=== PATIENT | female | born 1965 | race Caucasian/White ===

== ENCOUNTER → 2017-04-02 | Day surgery (SDC) | payer OTHER ==
[2017-03-27 11:16] VITALS: Ht 165.1 cm; Wt 70.5 kg
[~2017-04-02] VITALS: Ht 165.1 cm; Wt 70.5 kg
[~2017-04-02] MED LIST: DEXAMETHASONE SOD INJ 4 MG/ML VIAL ONE; FEXO1TAB49 PO; IBUP-1050 PO; LIDOCAINE HCL 1% MPF 5 ML VIAL ONE
--- NOTE | 2017-04-02 07:04 | History & Physical Bridge - [place] ---
H&P Re-Evaluation Bridge Note: I have examined the patient, reviewed the History & Physical and in the interval since the performance of the History & Physical I have noted the following changes of clinical significance: No changes noted
--- NOTE | 2017-04-02 07:33 | Discharge Instructions-SurgCtr ---
Discharge Instructions Date of Service Apr 02, 2017. Visit Reason for Visit: Lumbosacral Spondylosis Without Myelopathy Discharge Discharge Diagnosis / Problem: same Discharge Goals Goal(s): Decrease discomfort Activity Recommendations Activity Limitations: resume your previous activity Anesthesia . Post Anesthesia Instructions: If you have had General Anesthesia or IV Sedation: * Do not drive today. * Resume driving when surgeon permits. * Do not make important decisions or sign legal documents today. * Call surgeon for: 1. Temperature elevations greater than 101 degrees F. 2. Uncontrollable pain. 3. Excessive bleeding. 4. Persistent nausea and vomiting. 5. Medication intolerance (nausea, vomiting or rash). * For nausea and vomiting use only clear liquids such as: tea, soda, bouillon until nausea subsides, then gradually increase diet as tolerated. * If you have any concerns or questions, call your surgeon's office. If physician is unavailable and it is an emergency, call 911 or go to the nearest emergency room. . Diet Recommendations Home Diet: no limitations Procedures Procedures Performed: EPIDURAL STEROID INJECTION L4-L5 Pending Studies Studies pending at discharge: no Medical Emergencies . Who to Call and When: Medical Emergencies: If at any time you feel your situation is an emergency, please call 911 immediately. . Non-Emergent Contact Non-Emergency issues call your: Surgeon . . "Provider Documentation" section prepared by Urbano Pink. .
[2017-04-02 07:34] VITALS: TEMP 36.6
--- NOTE | 2017-04-02 07:34 | [facility] Post Operative Brief Note ---
Immediate Operative Summary Operative Date Apr 02, 2017. Pre-Operative Diagnosis SPONDYLOSIS Post-Operative Diagnosis SAME Procedure(s) Performed EPIDURAL STEROID INJECTION L4-L5 Surgeon DR MACK THORNE Nylon Hot Wire Cutter Surgeon(s) NONE Estimated Blood Loss 0 Findings arthritis Specimens 0 Complication(s) None Disposition Recovery Room / PACU
--- NOTE | 2017-04-02 07:45 | OPERATIVE REPORT ---
DATE OF OPERATION: 04/02/2017 PREOPERATIVE DIAGNOSIS: Stenosis and arthritis of the spine. POSTOPERATIVE DIAGNOSIS: Same. PROCEDURE: Include epidural steroid injection 4-5 lumbar. DESCRIPTION OF PROCEDURE: The patient was taken to the minor procedure room and placed prone, prepped and draped sterile. Spinal needle advanced to the epidural space at L4-5 lumbar. Then, 2 mL of dexamethasone injected without incident. The patient tolerated it well. Returned to recovery room satisfactory stable. I attest to the content of the Intraoperative Record and any orders documented therein. Any exception s are noted below.
[2017-04-02 07:54] VITALS: BP 142/97; PULSE 76; O2SAT 95
== END | disposition home or self-care (01) ==
LOC: X.SURG 06:20
PROVIDERS: ATTEND Orthopaedic Surgery Orthopaedic Surgery of the Spine
DX: M43.17 Spondylolisthesis, lumbosacral region (principal); Z90.49 Acquired absence of other specified parts of digestive tract

== ENCOUNTER → 2017-05-10 | Outpatient (CLI) | payer OTHER ==
[2017-05-10 16:35] LABS: BASO % 0.4 %; BASO ABS # 0.03 K/uL (0-0.2); COMPLETE YES; EOS % 2.7 %; EOS ABS # 0.19 K/uL (0-0.5); HEMATOCRIT 45.3 % (37-47); HEMOGLOBIN 15.2 g/dL (12.0-16.0); IG# 0.02 K/uL (0.00-0.02); IG% 0.3 %; LYMPH % 33.4 %; LYMPH ABS # 2.34 K/uL (1.2-3.4); MEAN CELL VOLUME 89.3 fL (80-100); MEAN CORPUSCULAR HGB CONC 33.6 g/dl (32-36); MEAN PLATELET VOLUME 9.2 fL (7.4-10.4); MONO ABS # 0.84 K/uL (0.11-0.59); NEUT % 51.2 %; NEUT ABS # 3.58 K/uL (1.4-6.5); PLATELET COUNT 290 K/uL (130-400); RED BLOOD COUNT 5.07 M/uL (4.2-5.4); RED CELL DISTRIBUTION WIDTH CV 12.4 % (11.5-14.5)
[2017-05-10 16:43] LABS: PTT PATIENT 25.1 SECONDS (21.0-31.0)
[2017-05-10 16:43] LABS: PROTHROMBIN TIME (PATIENT) 10.3 SECONDS (9.0-12.0)
[2017-05-10 16:50] LABS: URINE APPEARANCE CLEAR (CLEAR); URINE BILIRUBIN NEG (NEG); URINE BLOOD HGB NEG (NEG); URINE COLOR DK YELLOW; URINE GLUCOSE(DIPSTICK) NEG (NEG); URINE KETONES TRACE (NEG); URINE LEUKOCYTE ESTERASE NEG (NEG); URINE NITRITE NEG (NEG); URINE PH 5.5 (4.5-7.5); URINE PROTEIN(DIPSTICK) NEG (NEG); UROBILINOGEN NEG (NEG)
[2017-05-10 17:09] LABS: GLUCOSE 86 mg/dl (70-99)
[2017-05-10 17:09] LABS: BLOOD UREA NITROGEN 17 mg/dl (7-18); CALCIUM 9.4 mg/dl (8.5-10.1); CARBON DIOXIDE 30 mmol/L (21-32); CHLORIDE 105 mmol/L (98-107); CREATININE 0.76 mg/dl (0.60-1.20); EstGFR CKD-E AfrAm 103.8; EstGFR CKD-E NON AfrAm 89.6; POTASSIUM 3.5 mmol/L (3.5-5.1); SODIUM 140 mmol/L (136-145)
[2017-05-10 17:16] LABS: MANUAL MICROSCOPIC REQUIRED? NO; REVIEW REQ? NO
== END | disposition home or self-care (01) ==
LOC: C.RAD 15:57
DX: Z01.818 Encounter for other preprocedural examination (principal)

== ENCOUNTER 2017-05-23 06:23 | Inpatient (IN) | payer OTHER ==
[2017-05-16 13:30] VITALS: Ht 165.1 cm; Wt 72.7 kg
--- NOTE | 2017-05-22 21:28 | HISTORY & PHYSICAL EXAMINATION ---
DATE OF ADMISSION: 05/23/2017 CHIEF COMPLAINT: Back, buttock and lower extremity difficulty walking intolerance. HISTORY OF PRESENT ILLNESS: Thi is delightful, she has severe spinal stenosis of her spine. She has lower extremity difficulty, paresthesias, numbness and tingling. She has requested surgical intervention failing conservative management. PAST MEDICAL HISTORY: Positive for spine problems, neck problems, acid reflux, kidney stones. No carcinoma. No hypertension, diabetes but numbness and tingling. PAST SURGICAL HISTORY: Hysterectomy, cholecystectomy, kidney stones, carpal tunnel. ALLERGIES: POLLEN. MEDICATIONS: Allergy medication and Tylenol for pain. REVIEW OF SYSTEMS: Denies blurred vision, double vision, tinnitus or vertigo. Denies chest pain, palpitations, shortness of breath. No nausea, vomiting, urgency, frequency, dysuria. She has back, buttock and lower extremity musculoskeletal issues. PHYSICAL EXAMINATION: VITAL SIGNS: Blood pressure 130/80, pulse of 80, respiratory rate 16, temperature 97.4. HEENT: Pupils react to light and accommodation. Ear, nose and throat clear. CARDIAC: Normal S1, S2, no S3. LUNGS: Clear to auscultation. No rales, rhonchi or wheezing. ABDOMEN: Soft, nontender. Bowel sounds present in all quadrants. NEUROLOGIC: Decreased knee jerk reflexes, Achilles reflex, slight weakness of dorsiflexion. Gait intolerance. Pain with percussion, loss of range of motion. IMAGES: Demonstrated stenosis of the spine, particularly L4-L5 with slight instability. PLAN: Includes posterior lumbar interbody fusion L4-L5, possible Globus transition.
[~2017-05-23] VITALS: Ht 165.1 cm; Wt 72.7 kg
[2017-05-23] VITALS (7 sets, daily range): BP systolic 100–139; BP diastolic 60–83; PULSE 75–91; TEMP 36.2–36.8; O2SAT 92–97
[~2017-05-23 06:23] MED LIST changes: +CEFAZOLIN 2000MG IV PUSH 10 ML IV SCH; +FENTANYL CITRATE INJ 50 MCG/1 ML 2 ML VIAL ONE; +GLYCOPYRROLATE INJ 0.2 MG/ML VIAL ONE; +LACTATED RINGER'S 1000ML 1,000 ML IV SCH; -LIDOCAINE HCL 1% MPF 5 ML VIAL ONE; +LIDOCAINE HCL 2% 2 ML VIAL (20MG/ML) ONE; +MIDAZOLAM HCL 1 MG/ML 2ML VIAL ONE; +NEOSTIGMINE METHYLSULFATE 1 MG/ML 10ML VIAL ONE; +ONDANSETRON INJ 2 MG/ML 2 ML VIAL ONE; +PROPOFOL IV EMULSION 10 MG/ML 20 ML VIAL IV ONE; +SODIUM CHLORIDE 0.9% 1000ML 1,000 ML IV SCH
[2017-05-23] MEDS ORDERED: GELATIN SPONGE SZ 100 ONE (07:54)
[2017-05-23] MEDS ORDERED: THROMBIN FOR SOLN 20000 UNIT KIT ONE ×2 (07:54→07:55)
[2017-05-23] MEDS ORDERED: VANCOMYCIN HCL 1000MG/20ML VIAL ONE ×2 (07:54→08:07)
[2017-05-23] MEDS ORDERED: BACITRACIN 50000 UNIT VIAL ONE (07:55)
[2017-05-23] MEDS ORDERED: BUPIVACAINE/EPINEPHRINE 0.5% MPF 1:200,000 30 ML VIAL ONE (07:57)
[2017-05-23] MEDS ORDERED: HYDROmorphone INJ 2 MG/ML SYR/VIAL ONE (08:35)
[2017-05-23] MEDS ORDERED: EpHEDrine SULFATE 50MG/5ML SYR ONE (08:45)
[2017-05-23] MEDS ORDERED: ATROPINE SULFATE 0.1 MG/ML 5ML SYR IV PRN (09:15)
[2017-05-23] MEDS ORDERED: FLUMAZENIL 0.1 MG/1 ML 10 ML VIAL IV PRN (09:15)
[2017-05-23] MEDS ORDERED: NALOXONE HCL 0.4 MG/1 ML VIAL/CARP IV PRN ×2 (09:15→11:00)
[2017-05-23] MEDS ORDERED: LABETALOL HCL IV 5 MG/ML 20ML IV PRN (09:15)
[2017-05-23] MEDS ORDERED: ONDANSETRON INJ 2 MG/ML 2 ML VIAL IV PRN ×2 (09:15→11:00)
[2017-05-23] MEDS ORDERED: EpHEDrine SULFATE INJ 50 MG/ML AMP IV PRN (09:15)
[2017-05-23] MEDS ORDERED: PROMETHAZINE HCL INJ 12.5 MG in SODIUM CHLORIDE 0.9% 50ML 50 ML IV PRN ×2 (09:15→11:00)
[2017-05-23] MEDS ORDERED: ONDANSETRON INJ 2 MG/ML 2 ML VIAL ONE (09:33)
[2017-05-23] MEDS ORDERED: GLYCOPYRROLATE INJ 0.2 MG/ML VIAL ONE (09:38)
[2017-05-23] MEDS ORDERED: CISATRACURIUM BESYLATE IV SOLN 2 MG/ML 10 ML VIAL ONE (10:19)
[2017-05-23] MEDS ORDERED: SUCCINYLCHOLINE CHLORIDE 20 MG/ML 10 ML VIAL IV ONE (10:19)
--- NOTE | 2017-05-23 10:36 | DIAGNOSTIC IMAGING REPORT ---
SPINE ONE VIEW, ANY LEVEL CLINICAL HISTORY: 51 years-old Female presenting with L4-L5 FUSION. TECHNIQUE: 1 fluoroscopic spot image(s) obtained as part of an intraoperative procedure. COMPARISON: 04/02/2017. FINDINGS/IMPRESSION: Interval bilateral transpedicular screw fixation of L4-5 with interbody spacer placement. Laminectomy defects may also be present. Grossly normal anatomic alignment. Please see surgical report for further details. Fluoroscopy dosage (mGy): 5.9. Fluoroscopy time: 8.9 seconds. Number of fluoroscopic spot images: 1. Electronically signed by: Petr Butts M.D. 05/23/2017 10:35 AM Dictated Date/Time: 05/23/2017 10:34 AM
[2017-05-23] MEDS ORDERED: METOPROLOL TARTRATE 1 MG/ML VIAL ONE (10:49)
[2017-05-23] MEDS ORDERED: HYDROmorphone INJ 1 MG/ML SYR IV PRN (11:00)
[2017-05-23] MEDS ORDERED: CEFAZOLIN IV 1,000 MG in DEXTROSE 5% 50ML 50 ML IV SCH (11:00)
[2017-05-23] MEDS ORDERED: ACETAMINOPHEN 325 MG TAB PO PRN (11:00)
[2017-05-23] MEDS ORDERED: METOCLOPRAMIDE HCL INJ 5 MG/ML 2 ML VIAL IV PRN (11:00)
[2017-05-23] MEDS ORDERED: LORAZEPAM INJ 1 MG in SYRINGE 0.5 ML IV PRN (11:00)
[2017-05-23] MEDS ORDERED: LORAZEPAM 1 MG TAB PO PRN (11:00)
[2017-05-23] MEDS ORDERED: FEXOFENADINE HCL 180 MG TAB PO PRN (11:00)
[2017-05-23] MEDS ORDERED: SODIUM CHLORIDE 0.9% 1000ML 1,000 ML IV SCH (11:00)
[2017-05-23] MEDS ORDERED: HYDROmorphone INJ 2 MG/ML SYR/VIAL IV PRN (11:00)
[2017-05-23] MEDS ORDERED: MAGNESIUM HYDROXIDE SUSP 30 ML UDC PO PRN (11:00)
--- NOTE | 2017-05-23 11:04 | [facility] Post Operative Brief Note ---
Immediate Operative Summary Operative Date May 23, 2017. Pre-Operative Diagnosis Severe Spinal Stenosis L4-L5 Post-Operative Diagnosis Severe Spinal Stenosis L4-L5 Procedure(s) Performed L4-L5 Posterior Lumbar Interbody Fusion Surgeon Dr. Pink Net Developer With [facility] Surgeon(s) Jeramy Garcia PA-C Estimated Blood Loss 200 mL Findings Consistent with Post-Op Diagnosis Specimens None per surgeon Drains one hemovac Anesthesia Type General Complication(s) none
[2017-05-23] MEDS ORDERED: HYDROmorphone HCL 0.5MG/ML 50 ML CASSETTE ONE (11:14)
[2017-05-23] MEDS: HYDROmorphone INJ 1 MG/ML SYR IV PRN ×3 (11:30→11:40)
[2017-05-23 11:33] LABS: HEMATOCRIT 42.1 % (37-47); HEMOGLOBIN 13.9 g/dL (12.0-16.0)
--- NOTE | 2017-05-23 11:59 | Anesthesiology Progress Note ---
Anesthesia Post Op Note Date & Time May 23, 2017 at 11:59 Vital Signs Pain Intensity: 5 Vital Signs Past 12 Hours Date Time Temp Pulse Resp B/P (MAP) Pulse Ox O2 Delivery O2 Flow Rate FiO2 05/23/17 11:50 90 16 107/57 96 Nasal Cannula 4 05/23/17 11:40 83 16 122/71 97 Nasal Cannula 4 05/23/17 11:30 95 16 109/77 97 Oxymask 10 05/23/17 11:20 92 16 118/68 97 Oxymask 10 05/23/17 11:11 36.4 98 16 141/68 97 Oxymask 10 05/23/17 06:58 36.5 80 18 139/83 96 Room Air Notes Mental Status: alert / awake / arousable, participated in evaluation Pt Amnestic to Procedure: Yes Nausea / Vomiting: adequately controlled Pain: adequately controlled Airway Patency, RR, SpO2: stable & adequate BP & HR: stable & adequate Hydration State: stable & adequate Anesthetic Complications: no major complications apparent
--- NOTE | 2017-05-23 12:16 | OPERATIVE REPORT ---
DATE OF OPERATION: 05/23/2017 PREOPERATIVE DIAGNOSIS: Instability arthritis and stenosis lumbar spine, L4-L5. POSTOPERATIVE DIAGNOSIS: Same. PROCEDURE: Include lumbar spine posterior lumbar interbody fusion - L4-L5, posterolateral fusion and complete discectomy only L4-L5. SURGEON: Dr. Pink. WELL TESTING OPERATOR: Jeramy Garcia PA-C. ESTIMATED BLOOD LOSS: 200. COMPLICATIONS: Zero. IMPLANTS USED: [employer]. COUNTS: Sponge and needle counts correct at the close. DESCRIPTION OF PROCEDURE: The patient was taken to the operating room and general intubated, anesthetic provided to the patient, placed prone; scrubbed, prepped, draped sterile. We made a skin incision, fascial incision, put any deep self-retaining retractor stripping out past the facet joints. We did a formal decompression of the lamina of L4. It was obvious that the facet joints were completely incompetent and quite hypertrophied, there was no cartilage on the underside. We debrided this completely and did a laminectomy completely. We were able to also do a good foraminotomy of the L4 and L5 nerve roots bilaterally. We safely got pedicle screws in to the 4 and 5th vertebrae with the [employer], measuring approximately 40 mm in length and 6.5 mm in diameter. We then retracted the dura in a medial direction bilaterally to do a complete discectomy, put interbody cages into the vacated discectomy sites, measuring 22 mm in length, 12 mm in height and 10 mm across. These were all packed with autograft. Irrigated thoroughly, debrided and closed in a layered fashion. Sterile dressings applied. The patient returned to PACU stable. No complications. I attest to the content of the Intraoperative Record and any orders documented therein. Any exception s are noted below.
[2017-05-23] MEDS: SODIUM CHLORIDE 0.9% 1000ML 1,000 ML IV SCH (13:59)
[2017-05-23] MEDS: ACETAMINOPHEN IV 1,000 MG in EMPTY BAG 0 ML IV SCH ×2 (14:00→21:46)
[2017-05-23] MEDS: DEXAMETHASONE INJ 10 MG in SYRINGE 0 ML IV SCH ×2 (14:00→21:46)
[2017-05-23] MEDS: CEFAZOLIN IV 1,000 MG in SYRINGE 2.5 ML IV SCH ×2 (14:00→21:46)
[2017-05-23] MEDS: KETOROLAC TROMETHAMINE 30 MG/ML VIAL IV SCH ×2 (14:01→20:26)
[2017-05-23] MEDS: HYDROmorphone HCL 0.5MG/ML 50 ML CASSETTE IV PRN ×2 (14:57→22:55)
[2017-05-23] MEDS ORDERED: INFLUENZA VIRUS QUAD VACCINE 0.5 ML SYR IM. ONE (15:30)
[2017-05-23] MEDS ORDERED: INFLUENZA ADMINISTRATION CHARGE ONE (15:30)
[2017-05-24] MEDS: KETOROLAC TROMETHAMINE 30 MG/ML VIAL IV SCH ×3 (02:22→14:01)
[2017-05-24] MEDS: SODIUM CHLORIDE 0.9% 1000ML 1,000 ML IV SCH (02:22)
[2017-05-24 03:50] VITALS: BP 99/64; PULSE 77; TEMP 36.4; O2SAT 96
[2017-05-24] MEDS ORDERED: DC PCA ONE (06:00)
[2017-05-24] MEDS ORDERED: BISACODYL 5 MG TABEC PO PRN (06:00)
[2017-05-24] MEDS ORDERED: BISACODYL 10 MG SUPP PR PRN (06:00)
[2017-05-24] MEDS ORDERED: NURSING DECISION MEDICATION ORDER SCH ×2 (06:00→07:15)
[2017-05-24] MEDS: DEXAMETHASONE INJ 10 MG in SYRINGE 0 ML IV SCH ×3 (06:18→22:04)
[2017-05-24] MEDS: ACETAMINOPHEN IV 1,000 MG in EMPTY BAG 0 ML IV SCH ×3 (06:18→22:04)
[2017-05-24] MEDS: CEFAZOLIN IV 1,000 MG in SYRINGE 2.5 ML IV SCH (06:31)
[2017-05-24] MEDS ORDERED: COUGH DROP (SUGAR FREE) LOZ 24 LOZ/1 BOX LOZ PRN (07:00)
[2017-05-24] MEDS ORDERED: HYDR-4383 PO (07:47)
--- NOTE | 2017-05-24 07:48 | Discharge Instructions ---
Discharge Instructions Date of Service May 24, 2017. Admission Reason for Admission: Spinal Stenosis, Spondylolisthesis Discharge Discharge Diagnosis / Problem: same Discharge Goals Goal(s): Decrease discomfort, Improve function Activity Recommendations Activity Limitations: as noted below Lifting Limitations: no more than 5 pounds, until after follow-up appointment Exercise/Sports Limitations: until after follow-up appointment May Resume Sexual Activity: after follow-up appointment Shower/Bathe: keep incision dry . Instructions / Follow-Up Instructions / Follow-Up MEDICATIONS: Please take your prescriptions as instructed at your pre-op appointment. SPECIAL CARE: The following information is intended to answer some of the common questions and concerns regarding your surgery. Each patient is an individual and receives individual counselling throughout the course of treatment, from diagnosis to surgery all the way through recovery. What follows is not an exhaustive list, but should be a useful guide to some of the common questions and concerns patients have regarding their surgeries. These are not provided to keep you from calling us; rather, they give you something accurate and concrete to reference as you recover from your procedure. If you need us, we are available to you. As always, if you are not sure about something, call us at [phone]. MEDICAL EMERGENCIES: For these conditions, call 911 or go to your local hospital-based Emergency Department - not [facility] or equivalent. * Paralysis * Severe chest pain or difficulty breathing * Swelling or redness of either leg Spine procedures can be rather complex and though complications are rare, they do occur. In such cases, effective advice regarding emergency situations cannot always be addressed over the telephone. You may be referred to the emergency department for more effective management of your problem. Activity Limitations: It is important to give your body time to heal, so please limit your activities : * In general, don't do anything that moves your spine too much. You should avoid contact sports, twisting or heavy lifting while you recover. * 5-10 pounds is all you should attempt to lift. * You should not plan on driving for approximately 3 weeks and you should avoid traveling more than 30-45 minutes at a time. Longer trips should be broken down with walking breaks spaced appropriately. * Physical therapy is not usually required. * Walking and good posture practices will help you recover and regain your function. * Avoid straining or sudden changes in position. * In general, the goal is to take it easy and recover. Don't cause any new problems. Just relax. Showers: * Do not take a bath, use a Jacuzzi or hot tub or otherwise submerge your incision. * It is usually safe to take a shower 4-5 days after your surgery. * Your incision does not require any special creams or ointments. * Simply clean it with soap and water, dry and re-dress with a clean bandage afterwards. Incision: * Keep incision clean, dry and protected until your first follow-up appointment. * Some amount of drainage and redness is normal. Any drainage should be fairly clear and not have a foul odor. * If you feel anything is wrong or you have excessive drainage, please call us. * Your stitches and bridget will be removed 10-14 days after your surgery. At the time of your first post-op visit. * Neck surgeries are typically closed with a suture underneath the skin. The steri-strips over the incision should be maintained until we see you in the office. Bracing: * You may be provided with a back or neck brace to encourage good posture and prevent injury. It will remind you not to do too much as you heal and will alert others to the fact that you have had a surgery. * Back braces may be removed for showers and when you are resting at home. They must be worn when you are walking around for any period of time or for travel. * For neck surgery, you will likely be provided with two cervical collars. The soft collar ([place] or foam rubber) is worn most commonly throughout the day and while sleeping. The plastic collar (provided at the hospital) is for showering/bathing. * Except while eating, collars should remain in place. More specifically, bracing is provided for a purpose and should be worn. * Please obtain your brace or collars prior to your operation and bring them to the hospital with you on the day of surgery. * You should also bring your collars to your post-op appointment with Dr. Pink. You should always take good care of your body and practice healthy habits, especially following surgery. You should: * Follow your doctor's treatment plan * Sit and stand properly with good posture (ears over shoulders, shoulders over hips) Don't slouch * Learn to lift correctly * Exercise regularly (low-impact aerobic exercise is especially good, but check with your doctor first) * Generally, be up and walking for 5-10 minutes at a time at least 3-4 times per day from the day you get home * Increasing walking to tolerance until you can walk for 20-30 minutes at a time * Attain and maintain a healthy body weight * Eat healthy foods ( a well-balanced, low-fat diet rich in fruits and vegetables) and get enough calcium * Avoid excessive use of alcohol When to call our office - If you notice any of the following: * Increased pain not relieve by pain medicine * Fevers greater then 100 degrees F, chills or flu symptoms * Increased redness around incision * Drainage from the incision that is not clear * Any foul smelling drainage * Swelling or fluid collection beneath the skin Miscellaneous: * In the hospital, you may be given a walker or cane for support while walking. These are temporary needs and are intended to prevent injuries due to falls. You may discontinue them when you feel strong and steady enough on your feet. * Sleep in a comfortable position. We find that many patients find a lounge chair or recliner with several pillows to be beneficial in the early post-operative period. * The support stockings should be used for 7-10 days and may be discontinued when you are back to walking more and conducting usual household activities. No problem is insignificant. We are here to help you and get you well. Contact us at [phone]. Definitions: Foraminotomy: If part of the disc or a bone spur (osteophyte) is pressing on a nerve as it leaves the vertebra (through an exit called the foramen), a foraminotomy may be done. Otomy means "to make an opening." A foraminotomy is making the opening of the foramen larger, so the nerve can exit without being compressed. Laminotomy: Similar to the foraminotomy, a laminotomy makes a larger opening, this time in your bony plate protecting your spinal canal and spinal cord (the lamina). The lamina may be pressing on your nerve, so the surgeon may make more room for the nerves using a laminotomy. Laminectomy: Sometimes, a laminotomy is not sufficient. The surgeon may need to remove all or part of the lamina. This procedure is called a laminectomy. This can often be done at many levels without any harmful effects. Current Hospital Diet Patient's current hospital diet: Regular Diet Discharge Diet Recommended Diet: Regular Diet Procedures Procedures Performed: L4-L5 Posterior Lumbar Interbody Fusion Pending Studies Studies pending at discharge: no Medical Emergencies . Who to Call and When: Medical Emergencies: If at any time you feel your situation is an emergency, please call 911 immediately. . Non-Emergent Contact Non-Emergency issues call your: Primary Care Provider . "Provider Documentation" section prepared by Urbano Pink. . VTE Core Measure Inpt VTE Proph given/why not?: Treatment not indicated
--- NOTE | 2017-05-24 07:49 | Anesthesiology Progress Note ---
Anesthesia Post Op Note Date & Time May 24, 2017 at 07:48 Vital Signs Pain Intensity: 3.0 Vital Signs Past 12 Hours Date Time Temp Pulse Resp B/P (MAP) Pulse Ox O2 Delivery O2 Flow Rate FiO2 05/24/17 07:35 Room Air 05/24/17 03:50 36.4 77 16 99/64 (76) 96 Nasal Cannula 4.0 05/24/17 00:10 Room Air 05/23/17 23:23 36.8 75 16 106/64 (78) 96 Room Air 4.0 Notes Mental Status: alert / awake / arousable, participated in evaluation Pt Amnestic to Procedure: Yes Nausea / Vomiting: adequately controlled Pain: adequately controlled Airway Patency, RR, SpO2: stable & adequate BP & HR: stable & adequate Hydration State: stable & adequate Anesthetic Complications: no major complications apparent
[2017-05-24 07:57] VITALS: BP 122/68; PULSE 73; TEMP 36.3; O2SAT 97
--- NOTE | 2017-05-24 08:05 | ORTHOPEDICS PROGRESS NOTE ---
DATE: 05/24/2017 SUBJECTIVE: Alert, oriented, no chest pain, shortness of breath, no calf tenderness, some swelling. OBJECTIVE: Vital signs stable, afebrile. Moves all extremities. ASSESSMENT: Status post lumbar spine reconstructive surgery. Doing well in the short run. DISPOSITION: Includes instructions, and education, up ambulatory, very short walks. Tentative discharge home tomorrow the 25 of May.
[2017-05-24] MEDS ORDERED: NURSING VERBAL MED ORDER ONE (08:15)
[2017-05-24] MEDS: POLYETHYLENE (MIRALAX) 17 GM PACK PO SCH (08:40)
[2017-05-24] MEDS: HYDROmorphone HCL 2 MG TAB PO PRN ×4 (09:16→23:35)
[2017-05-24 10:07] VITALS: O2SAT 97
[2017-05-24 11:57] VITALS: BP 118/70; PULSE 67; TEMP 36.6; O2SAT 94
[2017-05-24 15:23] VITALS: BP 100/59; PULSE 75; TEMP 36.7; O2SAT 91
[2017-05-24 23:18] VITALS: BP 123/68; PULSE 68; TEMP 36.4; O2SAT 95
[2017-05-25] MEDS: ACETAMINOPHEN IV 1,000 MG in EMPTY BAG 0 ML IV SCH (06:00)
[2017-05-25] MEDS: HYDROmorphone HCL 2 MG TAB PO PRN ×2 (06:17→12:44)
[2017-05-25 07:11] VITALS: BP 136/78; PULSE 87; TEMP 36.5; O2SAT 94
[2017-05-25] MEDS: POLYETHYLENE (MIRALAX) 17 GM PACK PO SCH (09:08)
[2017-05-25] MEDS ORDERED: HYDR2TAB48 PO (10:10)
[2017-05-25] MEDS ORDERED: ATV/1 PO (10:12)
[2017-05-25 11:31] VITALS: BP 126/66; PULSE 78; O2SAT 98
[2017-05-25 11:47] VITALS: BP 136/78; PULSE 87; TEMP 36.5; O2SAT 94
--- NOTE | 2017-05-25 13:10 | PROGRESS NOTE ---
DATE: 05/25/2017 SUBJECTIVE: Minimal complaints of pain. Alert, oriented. No chest pain, shortness of breath, no confusion. OBJECTIVE: Vital signs stable. DATA: Labs not indicated. ASSESSMENT: Status post spinal reconstructive surgery, stable. DISPOSITION: ____ her home in improved stable condition this morning. She will have a prescription on her chart for Dilaudid and Ativan. We will see her back in the office in approximately 10 days. Brace is to be worn; instructions, precautions, warnings and education provided.
== END 2017-05-25 13:40 | disposition home or self-care (01) | DRG 455 ==
LOC: C.ACU 06:23 → C.3E 07:40 → ENRESERV 12:00
PROVIDERS: ADMIT Orthopaedic Surgery Orthopaedic Surgery of the Spine; ATTEND Orthopaedic Surgery Orthopaedic Surgery of the Spine
PROC: 0SG00AJ Fusion of Lumbar Vertebral Joint with Interbody Fusion Device, Posterior Approach, Anterior Column, Open Approach (ICD-10-PCS; principal; 2017-05-23 08:15)
PROC: 0SG00J1 Fusion of Lumbar Vertebral Joint with Synthetic Substitute, Posterior Approach, Posterior Column, Open Approach (ICD-10-PCS; principal; 2017-05-23 08:15)
PROC: 0ST20ZZ Resection of Lumbar Vertebral Disc, Open Approach (ICD-10-PCS; principal; 2017-05-23 08:15)
DX: M48.061 Spinal stenosis, lumbar region without neurogenic claudication (principal); M53.2X6 Spinal instabilities, lumbar region; Z79.899 Other long term (current) drug therapy